=== PATIENT | female | born 1955 | race African-American/Black ===

== ENCOUNTER → 2018-11-05 | Day surgery (SDC) | payer BC ==
[~2018-11-05] MED LIST: IV RINGERS,LACTATED 1000ML 1,000 ML IV SCH; LIDOCAINE 2% PF 5 ML VIAL. ONE; PROPOFOL 40 ML IV ONE
[2018-11-05 07:57] VITALS: BP 142/92
--- NOTE | 2018-11-06 00:59 | HP ---
ADMIT DATE: 11/05/2018 UPDATED HISTORY AND PHYSICAL REFERRING PHYSICIAN: Audrey Field MD HISTORY OF PRESENT ILLNESS: A 63-year-old female with past medical history significant for anemia, arthritis, GERD, hypertension, hyperlipidemia and sleep apnea, seen for colon exam. Bowel habits are regular without diarrhea or constipation, but no melena and/or hematochezia. Weight and appetite are stable. Family history is positive for colorectal cancer with an uncle and cousin. This is her first exam. PAST MEDICAL HISTORY: Hypertension, hyperlipidemia, GERD, arthritis, sleep apnea. ALLERGIES: CEPHALOSPORINS. MEDICATIONS: Include diltiazem, losartan, , atorvastatin and omeprazole. PAST SURGICAL HISTORY: Status post , hysterectomy, tubal ligation. FAMILY HISTORY: Significant for colon cancer with an uncle and cousin, breast cancer with multiple female family members, cerebrovascular accident in multiple family members, diabetes in multiple family members. REVIEW OF SYSTEMS: Per records. PHYSICAL EXAMINATION: GENERAL: Reveals a well-nourished, well-developed female who is alert and cooperative in no acute distress. VITAL SIGNS: Temperature is 97.3, pulse 91, respiratory rate is 18. HEENT: Normocephalic and atraumatic head. Pupils and extraocular muscles are not tested. Sclerae anicteric. NECK: Supple. LUNGS: Clear. CARDIOVASCULAR: Reveals an S1, S2 without S3, S4 or appreciable murmur. ABDOMEN: Soft abdomen, normal bowel sounds without appreciable hepatosplenomegaly. EXTREMITIES: Reveals no cyanosis, clubbing or edema. IMPRESSION AND PLAN: Colorectal screening with positive family history of colon cancer is warranted at this time. Risks and benefits of procedure were discussed with the patient previously, including risk of hemorrhage and perforation. She is willing to proceed. ANA DOE MD DR: LORENZA/nts JOB#: [id number] / [id number]
--- NOTE | 2018-11-08 18:06 | PATHOLOGY ---
[facility] Accession Number: [id number] . 01 Material submitted: . colon - TRANSVERSE COLON POLYP. Modifiers: transverse . 01 Clinical history: . Screening . 02 Diagnosis: Colon biopsies, transverse colon polyp: - Tubular adenoma. (JPM:kalyani; 11/08/2018) QMS/11/08/2018 . 02 Comment: There is no high grade dysplasia or evidence of malignancy. (JPM:kalyani 11/08/2018) . 02 Electronically signed: . Solomon Box MD, Pathologist NPI- [id number] . 01 Gross description: . The specimen is received in formalin, labeled "Ileana Strong, transverse colon polyp". Received are five segments of pale lees soft tissue ranging in size from 0.2 to 0.5 cm in maximum dimensions. The specimen is submitted entirely in cassette A1. ([facility]; 11/05/2018) QAC/QAC . 02 Pathologist provided ICD-10: D12.3 . 02 CPT . 977856 Specimen Comment: A courtesy copy of this report has been sent to Specimen Comment: [phone], . Specimen Comment: Report sent to / DR GONZALEZ Performed at: 01 [facility] [address], [place], [place] [id number] MD Jonas Zaldivar MD Phone: [phone] Performed at: 02 [facility] [address] [place], [place] [id number] MD Solomon Box MD Phone: [phone]
== END ==
LOC: ENDOS 06:07
PROVIDERS: ATTEND Internal Medicine Gastroenterology
DX: Z12.11 Encounter for screening for malignant neoplasm of colon (principal); D12.3 Benign neoplasm of transverse colon; K64.0 First degree hemorrhoids; I10 Essential (primary) hypertension; E78.5 Hyperlipidemia, unspecified; K21.9 Gastro-esophageal reflux disease without esophagitis; Z87.39 Personal history of other diseases of the musculoskeletal system and connective tissue; Z88.8 Allergy status to other drugs, medicaments and biological substances; Z90.710 Acquired absence of both cervix and uterus; Z98.51 Tubal ligation status; Z80.0 Family history of malignant neoplasm of digestive organs
CPT/HCPCS: 45385; 88305; J2001; J2704; 45380